=== PATIENT | male | born 1945 | race Caucasian/White ===

== ENCOUNTER 2019-03-21 09:10 | Inpatient (IN) | payer BC, OTHER ==
[~2019-03-21] VITALS: Ht 177.8 cm; Wt 93.9 kg
--- NOTE | ~2019-03-21 | EKG ---
[facility] [place] [address] ELECTROCARDIOGRAM REPORT Name: ELIJAH MATHIS Room #: REG [facility].#: [id number] Admission: 03/21/19 Attend Phys: Cholo Villa MD Discharge: Date of : 47 Report #: [id number] THIS REPORT FOR: cc: Robel Drew Alan Z. DO Epiphany, Epiphany MD ~ THIS REPORT FOR: //name// [facility] Test Date: 2019-03-21 Test Time: 09:28:08 Pat Name: ELIJAH JOSÉKEESHA Department: Room: Gender: Wire Walker: DANIELA : 1945 Requested By: Cholo Villa Order Number: [id number] MD: Measurements Intervals [place] Rate: 53 P: -20 MT: 179 QRS: 126 QRSD: 114 T: -1 QT: 468 QTc: 440 Interpretive Statements Sinus rhythm IRBBB and LPFB No previous ECG available for comparison [email or web address] By: 0928 0928 Epiphany Epiphany, /EPI
--- NOTE | ~2019-03-21 | EKG ---
[facility] [place] [address] ELECTROCARDIOGRAM REPORT Name: ELIJAH MATHIS Room #: 212-P [facility] M.R.#: [id number] Admission: 03/21/19 Attend Phys: Cholo Villa MD Discharge: Date of : 47 Report #: [id number] THIS REPORT FOR: cc: Robel Drew Alan Z. DO Epiphany, Epiphany MD ~ THIS REPORT FOR: //name// [facility] Test Date: 2019-03-22 Test Time: 07:28:01 Pat Name: ELIJAH MATHIS Department: Room: 212 Gender: M Manager Corporate: Mauri MARTINES : 1945 Requested By: Cholo Villa Order Number: [id number] MD: Measurements Intervals [place] Rate: 65 P: 16 [place]: 188 QRS: -22 QRSD: 107 T: 14 QT: 509 QTc: 530 Interpretive Statements Sinus rhythm Probable left atrial enlargement Borderline left axis deviation Prolonged QT interval No previous ECG available for comparison [email or web address] By: 0728 7 Epiphany Epiphany, /EPI
[~2019-03-21 09:10] MED LIST: BOSWELLIA SERRAT1 GM PO; CALCIUM-MAGNES1 EAC4 PO; ELIQUIS5 MG PO; GLUCOSAMIN-CHO1 EACH PO; HYALURONIC ACI1 EACH PO; POTASSIUM99 M1 PO; PROSTATE HEALT1 EAC1 PO; PROTONIX 20 MG20 MG PO; SAW PALMETTO 1160 MG PO; SORINE 80 MG TA80 MG PO; TURMERIC 500 M1 EACH PO; VITAMIN C1000 MG PO; VITAMIN D35000 UNI2 PO; VITAMIN K240 MCG PO
[2019-03-21 09:38] VITALS: BP 123/78
[2019-03-21 09:49] LABS: HEMATOCRIT 46.2 % (42.0-52.0); HEMOGLOBIN 15.2 gm/dL (14.0-18.0)
--- NOTE | 2019-03-21 17:13 | H ---
[facility] [place] [address] HISTORY AND PHYSICAL Name: ELIJAH MATHIS Room #: 150-5 [facility]#: [id number] Admission: 03/21/19 Attend Phys: Cholo Villa MD Discharge: Date of : 47 Report #: [id number] THIS REPORT FOR: cc: Robel Drew Alan Z. DO Chu, Peter Y. MD ~ THIS REPORT FOR: //name// CC: Robel Villa PREOPERATIVE DIAGNOSES: Symptomatic large paraesophageal hiatal hernia with recent epigastric pain and distress likely from twisting of the hernia. HISTORY OF PRESENT ILLNESS: The patient is a 73-year-old, who recently had a hospital admission because of epigastric pain. He came to the ER because of the acute pain. The patient has had postprandial epigastric fullness and pain for several months and he even had an endoscopy performed 2-3 months ago. This was performed by Dr. Garcia. The patient was noted to have a paraesophageal hiatal hernia. The patient had an ultrasound that suggested gallstones at [facility]. An ultrasound was repeated with his recent admission and there were no stones identified. When he came in, there was a CT of the abdomen and the hiatal hernia looked unusual and on the left side of the hernia, the stomach was ill-defined and had a fluid pocket. When I first looked at it, even thought that could be maybe a mass there. The patient did have an urgent EGD performed. The patient's paraesophageal hiatal hernia was able to be reduced. Symptomatically, the patient's discomfort resolved. I did follow up with a CT chest to look at the hernia in more detail and he does have about half of the stomach up in the chest. Because of symptomatic nature, he is recommended to have this repaired. The patient on initial CT was found to have possible partial bowel obstruction. Followup CT with contrast, there was mild dilatation of the small bowel, but contrast went readily through the intestine. The patient is brought in for laparoscopic repair of symptomatic paraesophageal hiatal hernia. The patient also has some umbilical and epigastric hernia that contained fat. PAST MEDICAL HISTORY: History of chronic atrial fib, recent bradycardia secondary to ____ beta sam. The beta sam was cut down to half. His heart rate has improved. MEDICATIONS: Eliquis 5 mg twice a day, which he stopped on Sunday. Protonix 20 mg daily, iron, glucosamine, potassium, magnesium, vitamin D, ascorbic acid. ALLERGIES: He is not allergic to anything. PAST SURGICAL HISTORY: No prior surgical history. [address] [address] HISTORY AND PHYSICAL Name: ARNAVELIJAH THAO Room #: 150-[address] [place] [address]..#: [id number] Admission: 03/21/19 Attend Phys: Cholo Villa MD Discharge: Date of : 47 Report #: [id number] SOCIAL HISTORY: The patient never smoked. The patient drinks, has 2 glasses of wine nightly. The patient works at [employer]. REVIEW OF SYSTEMS: He did have some loose stools with his pain. No chest pain, shortness of breath. No dyspnea on exertion. No palpitation. No numbness or weakness. PHYSICAL EXAMINATION: GENERAL: The patient is an elderly male in no acute distress. His epigastric pain had resolved. He is alert and oriented. HEENT: Pupils reactive to light. Extraocular muscles are intact. Oropharynx is clear. NECK: Soft and supple, no masses. LUNGS: Clear to auscultation. No wheezes. HEART: Irregular rate and rhythm. Normal S1, S2. ABDOMEN: Soft, mild tender in the epigastrium. No tenderness in right upper quadrant. No mass, no ascites, no guarding. The patient does have a hernia just above the umbilicus and second ventral hernia slightly above that. EXTREMITIES: No cyanosis, clubbing, edema. The patient moves all extremities well. NEUROLOGIC: Sensory exam is normal. IMPRESSION AND PLAN: The patient is a 73-year-old, who was recently admitted for epigastric pain, distress, nausea and vomiting. His symptoms resolved after admission. His initial CT, the area of the stomach at the side of the diaphragmatic defect looked irregular to me. Followup CT showed that area looked normal. I suspect that he had a kink or twist/mild volvulus of the stomach as it goes up into the chest. The patient is recommended to have this paraesophageal hiatal hernia repair. Because of the paraesophageal nature of the hernia, he is more risk for future problems. The difference between paraesophageal and sliding hiatal hernia was discussed. I do not think the symptom is gallbladder related. A repeat ultrasound did not show any stones. I reviewed his ultrasound from 3 months ago and I think the patient has some folds or possibly cholesterolosis. There were no well-defined stones. The patient is here for laparoscopic repair of paraesophageal hiatal hernia. The risks of procedure including bleeding, infection was discussed. Because of the delicate nature of the esophagus, esophageal injury was also discussed. Radha fundoplication is recommended to be performed along with the diaphragmatic repair. Use of the mesh was discussed. The patient is aware of this and wishes to proceed. <ELECTRONICALLY SIGNED> By: Cholo Villa MD 03/21/19 1713 2220 2329 Cholo Villa MD /aylin
[2019-03-21 18:00] VITALS: BP 122/74
--- NOTE | 2019-03-21 19:28 | NUR ---
CAME TO THE FLOOR AT 1800, ADMISSION DONE, VSS. REPORTED PAIN, PRN PAIN MED REQUESTED FROM PHARMACY. REPORT GIVEN TO NIGHT NURSE.
[2019-03-21 20:10] VITALS: BP 98/64
[2019-03-22 04:45] VITALS: BP 111/71
--- NOTE | 2019-03-22 07:57 | NUR ---
ASSUME CARE 1900. PT/VITALS STABLE. INTERMITTENT BILATERAL SHOULDER PAIN RELIEVED BY PAIN MEDICATION. TOLERATES ACTIVITY MODERATELY. ASSESSMETN CHARTED. PROGRESSING WELL WITH POC. INCISION SITES CDI. NO DISTRESS NOTED. SR/SB ON MONITOR AND ADEQUATE REST NOTEED. PLAN IS MONITOR FOR INFECTION AND PAIN MANAGEMENT. WILL CONTINUE TO MONITOR AND FOLLOW WITH POC
[2019-03-22 08:00] VITALS: BP 95/62
[2019-03-22 12:15] VITALS: BP 112/68
--- NOTE | 2019-03-22 13:33 | NUR ---
AAOX4 VERY PLEASANT AND COOOPERATIVE. ABDOMEN FIRM WITH VERY FEW HYPOACTIVE BS DENIES EXPELLING GAS. ENCOURAGED PATIENT TO AMBULATE EVERY 2 HOURS. REMOVED O2 AND O2 SAT 96%. AMBULATED WITH SLOW STEADY GAIT 3 LAPS AROUND UNIT. IV LEFT HAND AND RIGHT HAND SALINE LOCKED. TOLERATING CLEAR LIQUIDS AND ADVANCED TO FULL LIQUIDS. LAP SITES CLEAN AND DRY. VOIDING CLEAR YELLOW URINE.
[2019-03-22 16:00] VITALS: BP 109/71
--- NOTE | 2019-03-22 18:36 | NUR ---
ASSUMED CARE OF PT AT APPROX 1700 FROM DEPARTING NURSE. PT A&OX4, VSS. C/O SHOULDER PAIN TREATED WITH PO MEDS WITH ALMOST COMPLETE RELIEF. WILL CONTINUE TO MONITOR AND FOLLOW POC.
[2019-03-22 19:21] VITALS: BP 104/70
[2019-03-23 03:22] VITALS: BP 116/72
--- NOTE | 2019-03-23 06:19 | NUR ---
ASSUME CARE 1900. PT/VITALS STABLE. INTERMITTENT BILATERAL SHOULDER AND INCISIONAL PAIN. UP AD PETER. TOLERATES ACTIVITY WELL. SR ON MONITOR. ADEQUATE REST WITH NO DISTRESS NOTED. ASSESSMENT CHARTED. PROGRESSING WELL WITH POC. PLAN IS POSSIBLE DISCHARGE TODAY. WILL CONTINUE TO MONITOR AND FOLLOW WITH POC
[2019-03-23 08:05] VITALS: BP 117/69
[2019-03-23 12:00] VITALS: BP 102/71
[2019-03-23] MEDS ORDERED: HYDROCODONE-ACE15 ML PO (12:43)
[2019-03-23] MEDS ORDERED: TYLENOL WITH CO1 TA1 PO (12:44)
[2019-03-23 13:12] VITALS: BP 117/69
--- NOTE | 2019-03-23 13:49 | NUR ---
ASSUMED CARE OF PT AT SHIFT CHANGE. ASSESSMENT CHARTED. MEDS GIVEN PER MAR. VSS. C/O OF SHOULDER PAIN TREATED WITH PO MEDS WITH PARTIAL RELIEF. PT A&OX4. NO C/O SOA. DISCHARGE ORDERS AND INSTRUCTIONS COMPLETE. TELE AND IV DC'D. PT LEFT UNIT VIA WHEELCHAIR WITH AID TO WAITING IN CAR.
[2019-03-23 13:51] VITALS: BP 117/69
--- NOTE | 2019-03-25 10:07 | PATH ---
[facility] [address] [place] [address] PATHOLOGY RPT PROCEDURE Name: ELIJAH SELLERS Room #: 212-P [facility] IN M.R.#: [id number] Admission: 03/22/19 Date of : 47 Discharge: 03/23/19 Report #: [id number] Path Case #: [id number] [facility] Accession Number: [id number] . 01 Material submitted: . PART A: lymph node - GASTRIC LYMPH NODE PART B: hernia - PARA ESOPHAGEAL HERNIA SAC . 01 Clinical history: . Diaphragmatic hernia without obstruction or gangrene. . 02 Diagnosis: A. "Gastric lymph node", removal: - Fibroadipose tissue and nerve tissue with no pathologic diagnosis. - No lymphoid tissue identified. . B. "Paraesophageal hernia sac", removal: - Hernia sac with focal mild chronic inflammation. - One lymph node with no significant histopathologic diagnosis. . (JESSICA:santos; 03/24/2019) QMS 03/24/2019 1125 Local . 02 Electronically signed: . Eliseo Jaffe MD, Pathologist NPI- [id number] . 01 Gross description: . A. Received in formalin labeled "Elijah Sellers, epigastric lymph node" is a portion of yellow-burgos lobulated fibroadipose tissue measuring 7.8 x 2.3 x 0.8 cm. The specimen is palpated to reveal one possible lymph node measuring 0.6 cm in greatest dimension. The possible lymph node is submitted in cassette A1. The remaining tissue is submitted in cassettes A2-A3. . B. Received in formalin labeled "Elijah Sellers, paraesophageal hernia sac" are multiple fragments of yellow-burgos lobulated soft tissue and pink-burgos membranous soft tissue measuring in aggregate 11.2 x 9.4 x 1.5 cm. The specimen is palpated to reveal no nodules or fibrotic areas. Chemical Librarian tissue is submitted in cassette B1. ([facility]; 03/23/2019) [facility] 03/24/2019 1124 Local . 02 Pathologist provided ICD-10: K44.9 . 02 CPT . [address] [address] PATHOLOGY RPT PROCEDURE Name: ELIJAH SELLERS J Room #: 212-P [facility] IN M.R.#: [id number] Admission: 03/22/19 Date of : 47 Discharge: 03/23/19 Report #: [id number] Path Case #: [id number] Specimen Comment: A courtesy copy of this report has been sent to [phone], [phone] Specimen Comment: [id number] Specimen Comment: Report sent to and Specimen Comment: A duplicate report has been generated due to demographic updates. Performed at: [address] [facility], [place], [place] [id number] MD Oren Hansen MD Phone: [phone] Performed at: [address] [facility] [id number] MD Hilda Hammonds MD Phone: [phone]
--- NOTE | 2019-03-25 16:22 | O ---
[facility] [place] [address] OPERATIVE REPORT Name: ELIJAH MATHIS Room #: 212-P [facility] IN M.R.#: [id number] Admission: 03/22/19 Attend Phys: Cholo Villa MD Discharge: 03/23/19 Date of : 47 Report #: [id number] THIS REPORT FOR: cc: Robel Drew Alan Z. DO Chu, Peter Y. MD ~ THIS REPORT FOR: //name// CC: Robel Villa DATE OF SERVICE: 03/21/2019 PREOPERATIVE DIAGNOSES: 1. Large paraesophageal hiatal hernia with recent epigastric pain and distress, possible torsion of the stomach. 2. Epigastric hernia. POSTOPERATIVE DIAGNOSES: 1. Large paraesophageal hiatal hernia with recent epigastric pain and distress, possible torsion of the stomach. 2. Epigastric hernia. PROCEDURES PERFORMED: 1. Laparoscopic repair of large paraesophageal hiatal hernia with closure of the crural defect, reinforcement with Phasix mesh, laparoscopic Radha fundoplication. 2. Repair of epigastric hernia. ANESTHESIA: General. SURGEON: Cholo Villa MD COMPLICATIONS: None. ESTIMATED BLOOD LOSS: 30 mL. PROCEDURE: With the patient under general anesthesia, placed in the lithotomy position. Hartley catheter was placed, IV antibiotic was administered. Abdomen was prepped and draped in sterile fashion. Timeout was performed. The patient has a hernia just above the umbilicus and then also in the epigastric area about an inch and a half above the umbilicus. Skin was anesthetized with 0.25% Marcaine. Transverse incision about 2 cm was made about an inch and a half above the umbilicus. The epigastric hernia was identified. The fat that protruded through was dissected free and some of it was removed. The fascia edges were then identified. The fascia has about a centimeter and a half [address] [address] OPERATIVE REPORT Name: ELIJAH MATHIS Room #: 212-P [facility] IN ..#: [id number] Admission: 03/22/19 Attend Phys: Cholo Villa MD Discharge: 03/23/19 Date of : 47 Report #: [id number] defect. Fascia is somewhat thin. The 0 Vicryl suture placed on the fascia. With the abdominal wall lifted anteriorly, Veress was then placed. Abdominal cavity was insufflated with CO2. After creating pneumoperitoneum, 11 mm trocar was placed. This was placed under visualization. No harm to underlying tissue. This was just along the lower edge of the falciform ligament. A 5 mm trocar were placed in the right upper quadrant with the liver retractor and a 5 mm trocar was placed in right epigastrium. An 11 mm trocar was placed lateral over left upper quadrant along the midclavicular line and then a left anterior axillary line 5 mm trocar. The patient was placed in reverse Trendelenburg position. Liver retractor was placed. The patient's gallbladder did have adhesions around it. There is no inflammation here. The patient had fatty adhesions to the abdominal wall in the left upper quadrant. These are taken down. This allowed the visualization of the diaphragmatic hiatus. The patient did have a large size hiatal hernia with about half the stomach up in the chest. The peritoneum of the hernia sac was dissected along the edge. Along the edge of the diaphragmatic crura started on the left side, carried over to the right. The hernia sac was grasped and then bluntly dissected out of the mediastinum. There is some fat on the left side, going up into the sac, which was somewhat unusual. I think this is due to the chronicity. Once the stomach was able to be pulled out of the chest along with the sac, it was noted to have a fold in it, which is what we saw on the CT scan. The hernia sac was reduced and then the most was trimmed off along the edge of the stomach. Lateral dissection was also carried out initially freeing the greater curve going up to the left crura. There is a vessel in this fat that was clipped and then hemostasis obtained. This had a little bit of oozing. This can perform really most of the blood loss. Both lower aspect of the diaphragm crura was isolated. The esophagus was identified. GE junction was identified. The esophagus was dissected and freed in the chest. The aorta was identified. The esophagus was mobilized this way and had a good position intraabdominally. A 54-Kazakh dilator was then placed. The diaphragmatic closure was sized with this dilator in mind. The crura to allow better movement of the GE junction, the dilator was pulled back. The posterior crura was closed. This was closed with 3 separate interrupted suture of 0 silk suture. The Phasix mesh was used. The Phasix mesh was cut into a U shape. The center part that was cut out was used for small pledgets for the closure of the crura. Three separate posterior sutures were placed and then 1 anterior stitch was also used. The diaphragmatic crura was closed nicely. This was then reinforced with a Phasix mesh. Phasix mesh was then brought into the peritoneal cavity. This was then positioned. I did put 3 stitches of [place]-Jarvis CV-8 suture at the 11 o'clock position, 1 o'clock position and then at the 7 o'clock position, suturing it to the diaphragm. Rest of the mesh was laid out nicely and then tacked with SorbaFix. The mesh opened up well and seated well. On the left side, there was a significant amount of fat that I had to bring down and then have the mesh being in contact with the diaphragm and had maneuver the fat out of the way first. Subsequent to this, fundoplication was performed. A suture placed on the posterior fundus of 0 silk. This was clipped and left long. I was able to come from the patient's right side. Finding the stitch and [facility] [address] [place] [address] OPERATIVE REPORT Name: ELIJAH MATHIS Room #: 212-P [facility] IN M.R.#: [id number] Admission: 03/22/19 Attend Phys: Cholo Villa MD Discharge: 03/23/19 Date of : 47 Report #: [id number] then pulled the stomach posterior to the GE junction. The stomach sat nicely. A shoeshine maneuver was performed and the anterior fundus sewn to the posterior fundus that was brought underneath for fundoplication. Three separate stitches were used. The fundoplication is about 2 cm in length. Again, the dilator was placed down and the fundoplication was performed with the sizer there. Again, small piece of the pledget was used. Fundoplication was completed without difficulty. The Tisseel was then used over the mesh material and also small amount was placed over the fundoplication sutures. This was placed in a spray aiding with a sprayer. A 10 mL was used. Hemostasis obtained. The 11 mm trocar originally placed with epigastric hernia was then dressed. The fat that was directly underneath was dissected free from the wall, including part of the inferior aspect of the falciform ligament. The abdominal wall was isolated. A small Ventralex patch was inserted and then pulled up against the wall. The fascia was closed incorporating the strap of the Ventralex patch using 0 PDS horizontal mattress x 2. The other 11 mm trocar site, the fascia was closed with 0 Vicryl with a suture retrieval. A 5 mm trocars were removed. CO2 was evacuated as much as possible. Liver retractor was removed. Skin was irrigated. Skin was closed with 5-0 PDS. Dermabond Band-Aids applied. The patient tolerated the procedure well and was taken to recovery room. <ELECTRONICALLY SIGNED> By: Cholo Villa MD 03/25/19 1622 2219 2244 Cholo Villa MD /nt
== END 2019-03-23 14:28 | disposition home or self-care (01) | DRG 326 ==
LOC: OR 09:10 → TBA 10:27 → OR 11:18 → 2N 18:06 → OR 03-22 14:00 → 2N 03-22 14:00
PROVIDERS: ADMIT Surgery
PROC: 0BUT4JZ Supplement Diaphragm with Synthetic Substitute, Percutaneous Endoscopic Approach (ICD-10-PCS; principal; 2019-03-21)
PROC: 0WUF4JZ Supplement Abdominal Wall with Synthetic Substitute, Percutaneous Endoscopic Approach (ICD-10-PCS; principal; 2019-03-21)
PROC: 0DQ44ZZ Repair Esophagogastric Junction, Percutaneous Endoscopic Approach (ICD-10-PCS; principal; 2019-03-21)
PROC: 0DV40ZZ Restriction of Esophagogastric Junction, Open Approach (ICD-10-PCS; 2019-03-21)
DX: K44.9 Diaphragmatic hernia without obstruction or gangrene (principal); K56.2 Volvulus; I48.20 Chronic atrial fibrillation, unspecified; K56.7 Ileus, unspecified; N40.0 Benign prostatic hyperplasia without lower urinary tract symptoms; K43.9 Ventral hernia without obstruction or gangrene; Z79.01 Long term (current) use of anticoagulants; Z79.899 Other long term (current) drug therapy; Z88.8 Allergy status to other drugs, medicaments and biological substances; I25.2 Old myocardial infarction
CPT/HCPCS: 10081; 50010; 50101; 50119; 50249; 50411; 50455; 50555; 50558; 50848; 50886; 51437; 51474; 51489; 52182; 53307; 53310; 53335; 54022; 54118; 56462; 56524; 56525; 56526; 62110; 62900; 70005